=== PATIENT | female | born 1945 | race Caucasian/White ===

== ENCOUNTER → 2017-02-21 | Outpatient (CLI) | payer MEDICARE, OTHER ==
[~2017-02-21] MED LIST: ENAL5TAB PO; GLMP1T PO; HCT25T PO; METF1000 PO; MTP50T PO; SIMV40TA2 PO
[2017-02-21 08:01] LABS: MEAN CORPUSCULAR HEMOGLOBIN 28.1 PG (26.0-34.0); MEAN CORPUSCULAR VOLUME 89 FL (80-100); MEAN PLATELET VOLUME 11.6 FL (6.0-9.5); PLATELET COUNT 262 10^3uL (150-450); WHITE BLOOD COUNT 6.71 10^3uL (4.0-11.0)
[2017-02-21 08:06] LABS: MEAN CORPUSCULAR HGB CONC 31.6 g/dL (31.0-37.0)
[2017-02-21 08:22] LABS: BAND NEUTROPHILS % 1 % (0-6); EOSINOPHILS % 15 % (0-4); LYMPHOCYTES # 2.1 #; MONOCYTES # 0.6 #; MONOCYTES % 10 % (3-11); RBC MORPH NORMAL (NORMAL); SEGMENTED NEUTROPHILS % 42 % (51-67); TOTAL CELLS COUNTED 100
[2017-02-21 08:31] LABS: ALBUMIN 4.4 g/dL (3.4-5.0); ANION GAP 17.3 MEQ/L (3-15); CALCULATED IONIZED CALCIUM 4.3 mg/dL (3.8-4.6); TOTAL PROTEIN 7.3 g/dL (6.4-8.5)
[2017-02-21 08:46] LABS: ERYTHROCYTE SEDIMENTATION RT* 34 mm/hr (0-23)
--- NOTE | 2017-02-21 14:37 | Diagnostic Imaging Report ---
INDICATION: Screening mammogram. COMPARISON: 06/27/2015, 06/03/2014, and 05/24/2013. FAMILY HISTORY: Negative. TECHNIQUE: Bilateral digital mammography was performed with computer assisted detection (CAD) software utilization. PERSONAL HISTORY: There are no reported clinical signs and/or symptoms of breast cancer. FINDINGS: The breast tissue pattern is composed of a mild amount of radiographically dense breast tissue. RIGHT BREAST: A stereotactic biopsy clip is present, unchanged from the prior exams. The density pattern is also stable. No dominant mass, suspicious microcalcification, or other significant abnormality is identified. LEFT BREAST: No architectural distortion, dominant mass, or suspicious calcification is seen. The tissue pattern is stable. IMPRESSION: Negative for malignancy. Followup in 1 year. ACR BI-RADS Category 1: Negative Result letter will be mailed to the patient. Note: At least 10% of breast cancer is not imaged by mammography. Dictated by: Dictated on workstation # [id number]
== END ==
LOC: RAD 07:36
PROVIDERS: ATTEND Internal Medicine
DX: Z00.00 Encounter for general adult medical examination without abnormal findings (principal); Z12.31 Encounter for screening mammogram for malignant neoplasm of breast; D72.1 Eosinophilia; E11.9 Type 2 diabetes mellitus without complications; I10 Essential (primary) hypertension; E78.4 Other hyperlipidemia; E03.8 Other specified hypothyroidism
CPT/HCPCS: 36415; 80053; 80061; 82043; 82607; 83036; 84443; 85025; 85652; G0202

== ENCOUNTER → 2017-02-28 | Outpatient (REF) | payer MEDICARE, OTHER ==
[2017-03-01 00:40] LABS: VITAMIN B 12 206 pg/mL (213-816)
== END ==
LOC: LAB 16:41
PROVIDERS: ATTEND Internal Medicine
DX: E53.8 Deficiency of other specified B group vitamins (principal); Z11.59 Encounter for screening for other viral diseases
CPT/HCPCS: 82607; 83090; 83921; 86803

== ENCOUNTER → 2017-03-17 | Outpatient (CLI) | payer MEDICARE, OTHER | LOC: RAD 09:10 | PROVIDERS: ATTEND Internal Medicine | DX: Q25.3 Supravalvular aortic stenosis (principal); I10 Essential (primary) hypertension | CPT/HCPCS: 93306 ==